=== PATIENT | female | born 1955 | race Caucasian/White ===

== ENCOUNTER 2022-10-10 21:47 | Emergency (ER) | payer SELFPAY ==
--- NOTE | ~2022-10-10 | XR_ITS ---
Clinical Indication: Cough PA and lateral views of the chest: Comparison: None Findings: The lungs are clear, without evidence of focal consolidation or pleural effusion. Possible COPD. Cardiomediastinal silhouette is within normal limits. Bones and soft tissues are unremarkable. Impression: Possible COPD. Clear lungs. Reviewed, dictated and finalized at location M. Impression: Possible COPD. Clear lungs.
[2022-10-10 21:56] VITALS: BP 142/84; PULSE 77; RESP 18; TEMP 36.7; O2SAT 99
--- NOTE | 2022-10-10 22:42 | PC.NURSE ---
Pt in XY at this time.
[2022-10-10 22:44] VITALS: O2SAT 97
--- NOTE | 2022-10-10 23:32 | ED.GENADULT ---
HPI - General Adult General Chief complaint: Upper Respiratory Infection Stated complaint: upper resp infection Time Seen by Provider: 10/10/22 22:07 History of Present Illness HPI narrative: A 66-year-old pack-a-day smoker presenting ED with chief complaint of cough. Patient developed cold-like symptoms approximately 3 weeks ago. It was not included cough congestion and malaise. Her condition has improved although she has still had a persistent cough. Is a productive cough that is worse at night. She has no fevers, chest pain, nausea vomiting diarrhea or abdominal pain. She does note she has some dyspnea on exertion. She is here because she has had a chronic cough that is bothering her and her at night. Related Data Allergies Allergy/AdvReac Type Severity Reaction Status Date / Time No Known Allergies Allergy Verified 10/10/22 22:47 Exam Narrative: APPEARANCE: patient appears older than her stated age Head: atraumatic. EYES: EOMI, NOSE: Atraumatic NECK: Trachea midline RESPIRATORY: no increased work of breathing, speaking in full sentences, diffuse wheezing on exam CARDIOVASCULAR: RRR, referral edema ABDOMINAL: Non-distended MUSCULOSKELETAl: No obvious deformities NEURO: Alert. Moving 4/4 extremities SKIN:: Warm, dry. Normal color PSYCHIATRIC: Normal affect Course Vital Signs Vital signs: Vital Signs Temperature 98.1 F 10/10/22 21:56 Pulse Rate 77 10/10/22 21:56 Respiratory Rate 18 10/10/22 21:56 Blood Pressure 142/84 H 10/10/22 21:56 Pulse Oximetry 99 10/10/22 21:56 Oxygen Delivery Room Air 10/10/22 21:56 Temperature 98.1 F 10/10/22 21:56 Pulse Rate 77 10/10/22 21:56 Respiratory Rate 18 10/10/22 21:56 Blood Pressure 142/84 H 10/10/22 21:56 Pulse Oximetry 97 10/10/22 22:44 Oxygen Delivery Room Air 10/10/22 22:44 Medical Decision Making [facility] Narrative Medical decision making narrative: -Presentation: 66-year-old female presenting with cold-like symptoms that have since improved but now has a lingering cough. -DDX includes but is not limited to: Viral syndrome, bronchitis, post viral cough, smoker's cough -Co-morbidities complicating care: 50 pack year smoking history -Social determinants of health: patient works at [employer] lives with her jerry Jose a day since she was 18 -External Chart Review: none -Hx from independent Sources: Damon @ bedside -Discussion of Management/Consultants: none -Independent interpretation of studies: chest x-ray had no evidence of pneumonia. Dx tests considered but not ordered: None -Procedures: none -Interventions: hour long DuoNeb treatment, dexamethasone, guaifenesin -Shared decision making / Disposition: Upon re-evaluation the patient's condition is improved. She is comfortable going home. patient will be discharged with an albuterol inhaler for bronchitis. She had been given primary care follow-up. She is instructed to stop smoking. -RX Albuterol Vital Signs Vital Signs: Vital Signs Temperature 98.1 F 10/10/22 21:56 Pulse Rate 77 10/10/22 21:56 Respiratory Rate 18 10/10/22 21:56 Blood Pressure 142/84 H 10/10/22 21:56 Pulse Oximetry 99 10/10/22 21:56 Oxygen Delivery Room Air 10/10/22 21:56 Temperature 98.1 F 10/10/22 21:56 Pulse Rate 77 10/10/22 21:56 Respiratory Rate 18 10/10/22 21:56 Blood Pressure 142/84 H 10/10/22 21:56 Pulse Oximetry 97 10/10/22 22:44 Oxygen Delivery Room Air 10/10/22 22:44 Discharge Plan Discharge Clinical Impression: Bronchitis Patient Disposition: Home, Self-Care Condition: Stable Instructions: Antibiotic Form, How to Stop Smoking (ED), Acute Bronchitis (ED) Additional Instructions: He was seen emergency department for cough. please stop smoking. Please use your albuterol inhaler every 4 hours until your symptoms improve. Please follow-up primary care physician. If you develo
[2022-10-10] MEDS: IPRATROPIUM BR 0.02% INH SOLN 0.5 MG/2.5 ML VIAL 1.5 MG INHALATION (23:34)
[2022-10-10] MEDS: ALBUTEROL SULFATE NEB 2.5 MG/3 ML INH 10 MG INHALATION (23:34)
[2022-10-10 23:35] VITALS: PULSE 76; RESP 20
[2022-10-10] MEDS: guaiFENesin/DEXTROMETHORPHAN 10 ML UDC PO (23:36)
[2022-10-11 00:09] VITALS: BP 142/94; PULSE 81; RESP 21; O2SAT 100
== END 2022-10-11 00:52 | disposition home or self-care (01) ==
PROVIDERS: Emergency Provider Emergency Medicine
DX: J40 Bronchitis, not specified as acute or chronic (principal); F17.210 Nicotine dependence, cigarettes, uncomplicated
CPT/HCPCS: 71046; 94640; 96372; 99283; A9270; J1100

== ENCOUNTER 2023-09-15 15:49 | Outpatient (CLI) | payer MEDICARE, SELFPAY ==
--- NOTE | ~2023-09-15 | MM_ITS ---
EXAMINATION: MM screening galen BI w natacha HISTORY: Screening TECHNIQUE: Craniocaudal and mediolateral oblique 3-D tomosynthesis images were obtained and synthetic 2-D images were generated. CAD analysis was submitted and interpreted. COMPARISON: Comparison to multiple prior studies sequentially, with oldest reviewed study dated 09/06. BREAST PARENCHYMAL COMPOSITION: Not dense: There are scattered areas of fibroglandular density. FINDINGS: There is no evidence of suspicious mass, calcification, or architectural distortion to sugg est malignancy in either breast. There has been no suspicious interval change. IMPRESSION: 1. No mammographic evidence of malignancy. 2. Recommend routine screening mammography in one year. BI-RADS Category 1: Negative Reviewed, dictated and finalized at location A.
== END 2023-09-15 15:50 | disposition home or self-care (01) ==
DX: Z12.31 Encounter for screening mammogram for malignant neoplasm of breast (principal)
CPT/HCPCS: 77063; 77067